=== PATIENT | female | born 1935 | race Caucasian/White ===

== ENCOUNTER 2018-09-18 06:00 | Day surgery (SDC) | payer OTHER ==
[~2018-09-18 06:00] MED LIST: ECOTRIN81 MG PO; IBERSARTAN PO; INSULIN PO; METOPROLOL SUCC50 MG PO; SYNTHROID50 MCG PO; ZOCOR40 MG
== END 2018-09-18 10:09 | disposition home or self-care (01) ==
LOC: CIR.AMB 06:00
DX: G56.01 Carpal tunnel syndrome, right upper limb (principal)